=== PATIENT | female | born 1995 | race Caucasian/White ===

== ENCOUNTER 2020-01-02 16:14 | Emergency (ER) | payer OTHER ==
[2020-01-02 16:19] VITALS: RESP 18
[2020-01-02] MEDS ORDERED: SODIUM CHLORIDE 0.9% 2,000 ML IV STA (16:57)
[2020-01-02] MEDS ORDERED: ONDANSETRON 4 MG/2 ML VIAL IVP STA (17:07)
[2020-01-02 17:15] LABS: Basophils % (A) 0 %; Eosinophils # (A) 0.1 k/uL (0-0.7); Eosinophils % (A) 1 %; HCT 39.1 % (34.0-46.0); HGB 13.7 gm/dL (11.4-16.0); Lymphocytes # (A) 1.7 k/uL (1.0-4.8); Lymphocytes % (A) 18 %; MCH 30.3 pg (25.0-35.0); MCV 86.6 fL (80.0-100.0); Mean Platelet Volume 6.3; Monocytes # (A) 0.3 k/uL (0-1.0); Monocytes % (A) 3 %; Neutrophils # (A) 7.5 k/uL (1.3-7.7); Neutrophils % (A) 77 %; Platelet Count 283 k/uL (150-450); RBC 4.51 m/uL (3.80-5.40); RDW 12.4 % (11.5-15.5); WBC 9.8 k/uL (3.8-10.6)
[2020-01-02 17:21] LABS: Appearance,Urine Clear (Clear); Bacteria,Urine Rare /hpf; Bilirubin,Urine Negative (Negative); Blood,Urine Negative (Negative); Color,Urine Light Yellow; Glucose,Urine (UA) Negative (Negative); Ketones,Urine 3+ (Negative); Leukocyte Esterase,Urine Moderate (Negative); Mucus,Urine Rare /hpf; Nitrite,Urine Negative (Negative); Protein,Urine Negative (Negative); RBC,Urine 1 /hpf (0-5); Specific Gravity,Urine 1.008 (1.001-1.035); Squamous Epithelial Cell,Urine 5 /hpf (0-4); Urobilinogen,Urine <2.0 mg/dL (<2.0); WBC,Urine 1 /hpf (0-5)
[2020-01-02 17:25] LABS: ALT 12 U/L (4-34); AST 20 U/L (14-36); African American GFR (CKD) >90 (>60 ml/min/1.73 sqM); Albumin 4.7 g/dL (3.5-5.0); Alkaline Phosphatase 56 U/L (38-126); Anion Gap 10 mmol/L; Blood Urea Nitrogen 6 mg/dL (7-17); Calcium 9.7 mg/dL (8.4-10.2); Carbon Dioxide 22 mmol/L (22-30); Chloride 102 mmol/L (98-107); Glucose 80 mg/dL (74-99); Non-African American GFR(CKD) >90 (>60 ml/min/1.73 sqM); Sodium 134 mmol/L (137-145); Total Bilirubin 0.8 mg/dL (0.2-1.3)
--- NOTE | 2020-01-02 17:35 | US ---
EXAMINATION TYPE: US OB limited DATE OF EXAM: 01/02/2020 COMPARISON: NONE CLINICAL HISTORY: heart tones. heart tones. Cramping. Hx miscarriage. . EXAM PERFORMED: Transabdominal (TA) GESTATIONAL AGE / DATING Physician Established: (13 weeks/3 days) EDC: 07/06/2020 No growth performed on today?s study per ordering physician HEART RATE: 166 bpm RHYTHM: Normal IMPRESSION: Limited exam shows the fetus has a heart rate of 166.
--- NOTE | 2020-01-02 17:36 | ED ---
Nausea/Vomiting/Diarrhea HPI - General Chief complaint: Nausea/Vomiting/Diarrhea Stated complaint: 14 wks preg - cramping Time Seen by Provider: 01/02/20 16:56 Source: patient, RN notes reviewed Mode of arrival: ambulatory Limitations: no limitations - History of Present Illness Initial comments: this a 24-year-old female presents emergency Department chief complaint of nausea vomiting and early . Patient states she is G1 to currently [address] Colin. Patient states that she did have some morning sickness throughout her early patient states is getting better but statesin the last 24 hours been on able to keep anything down. Patient states that she has some mild lower abdominal cramping no dysuria no h ematuria no vaginal bleeding or vaginal discharge are the usual. Patient has no diarrhea no constipation. - Related Data Allergies Allergy/AdvReac Type Severity Reaction Status Date / Time No Known Allergies Allergy Verified 01/02/20 16:19 Review of Systems ROS Statement: Those systems with pertinent positive or pertinent negative responses have been documented in the HPI. ROS Other: All systems not noted in ROS Statement are negative. Past Medical History Past Medical History: No Reported History History of Any Multi-Drug Resistant Organisms: None Reported Past Surgical History: No Surgical Hx Reported Past Psychological History: Anxiety, Depression Smoking Status: Vaper Past Alcohol Use History: None Reported Past Drug Use History: Unable to Obtain General Exam Limitations: no limitations General appearance: alert, in no apparent distress Head exam: Present: atraumatic, normocephalic, normal inspection Eye exam: Present: normal appearance, PERRL, EOMI. Absent: scleral icterus, conjunctival injection, periorbital swelling ENT exam: Present: normal exam, normal oropharynx, mucous membranes moist Neck exam: Present: normal inspection, full ROM. Absent: tenderness, meningismus, lymphadenopathy Respiratory exam: Present: normal lung sounds bilaterally. Absent: respiratory distress, wheezes, rales, rhonchi, stridor Cardiovascular Exam: Present: regular rate, normal rhythm, normal heart sounds. Absent: systolic murmur, diastolic murmur, rubs, gallop, clicks GI/Abdominal exam: Present: soft, tenderness (mild suprapubic), normal bowel sounds. Absent: distended, guarding, rebound, rigid Course Vital Signs 01/02/20 16:16 Temperature 98.1 F Pulse Rate 59 L Respiratory 18 Rate Blood Pressure 112/69 O2 Sat by Pulse 100 Oximetry Medical Decision Making - Medical Decision Making 23-year-old female presented for nausea vomiting abdominal cramping. Patient does have mild dehydration, ultrasound shows heart rate of 166 patient has no vaginal bleeding. Patient be discharged in stable condition close follow-up. - Lab Data Result diagrams: 01/02/20 17:03 01/02/20 17:03 Lab Results 01/02/20 01/02/20 01/02/20 Range/Units 17:03 17:03 17:03 WBC 9.8 (3.8-10.6) k/uL RBC 4.51 (3.80-5.40) m/uL Hgb 13.7 (11.4-16.0) gm/dL Hct 39.1 (34.0-46.0) % MCV 86.6 (80.0-100.0) fL MCH 30.3 (25.0-35.0) pg MCHC 35.0 (31.0-37.0) g/dL RDW 12.4 (11.5-15.5) % Plt Count 283 (150-450) k/uL MPV 6.3 Neutrophils % 77 % Lymphocytes % 18 % Monocytes % 3 % Eosinophils % 1 % Basophils % 0 % Neutrophils # 7.5 (1.3-7.7) k/uL Lymphocytes # 1.7 (1.0-4.8) k/uL Monocytes # 0.3 (0-1.0) k/uL Eosinophils # 0.1 (0-0.7) k/uL Basophils # 0.0 (0-0.2) k/uL Sodium 134 L (137-145) mmol/L Potassium 4.0 (3.5-5.1) mmol/L Chloride 102 (98-107) mmol/L Carbon Dioxide 22 (22-30) mmol/L Anion Gap 10 mmol/L BUN 6 L (7-17) mg/dL Creatinine 0.44 L (0.52-1.04) mg/dL Est GFR (CKD-EPI)AfAm >90 (>60 ml/min/1.73 sqM) Est GFR (CKD-EPI)NonAf >90 (>60 ml/min/1.73 sqM) Glucose 80 (74-99) mg/dL Calcium 9.7 (8.4-10.2) mg/dL Total Bilirubin 0.8 (0.2-1.3) mg/dL AST 20 (14-36) U/L ALT 12 (4-34) U/L Alkaline Phosphatase 56 (38-126) U/L Total Protein 8.0 (6.3-8.2) g/dL Albumin 4.7 (3.5-5.0) g/dL Urine Color Light Yellow Urine Appearance Clear (Clear) Urine pH 6.0 (5.0-8.0) Ur Specific [place] 1.008 (1.001-1.035) Urine Protein Negative (Negative) Urine Glucose (UA) Negative (Negative) Urine Ketones 3+ H (Negative) Urine Blood Negative (Negative) Urine Nitrite Negative (Negative) Urine Bilirubin Negative (Negative) Urine Urobilinogen <2.0 (<2.0) mg/dL Ur Leukocyte Esterase Moderate H (Negative) Urine RBC 1 (0-5) /hpf Urine WBC 1 (0-5) /hpf Ur Squamous Epith Cells 5 H (0-4) /hpf Urine Bacteria Rare H (None) /hpf Urine Mucus Rare H (None) /hpf Disposition Clinical Impression: Dehydration, Nausea/vomiting in Disposition: HOME SELF-CARE Condition: Stable Instructions (If sedation given, give patient instructions): Acute Nausea and Vomiting (ED) Additional Instructions: Please return to the Emergency Department if symptoms worsen or any other concerns. Is patient prescribed a controlled substance at d/c from ED?: No Referrals: None,Stated [Primary Care Provider] - 1-2 days Time of Disposition: 18:12
[2020-01-02 18:54] VITALS: BP 110/63; PULSE 60; TEMP 97.8
== END 2020-01-02 19:05 | disposition home or self-care (01) ==
LOC: EC 16:14
DX: O21.9 Vomiting of pregnancy, unspecified (principal); O99.282 Endocrine, nutritional and metabolic diseases complicating pregnancy, second trimester; E86.0 Dehydration; O99.331 Smoking (tobacco) complicating pregnancy, first trimester; F17.290 Nicotine dependence, other tobacco product, uncomplicated; Z3A.14 14 weeks gestation of pregnancy
CPT/HCPCS: 99284; 96374; 96361 ×2; 36415; 80053; 85025; 81001; 76815; J2405

== ENCOUNTER 2020-01-16 14:28 | Emergency (ER) | payer OTHER ==
[2020-01-16 14:32] VITALS: TEMP 98.6
[2020-01-16] MEDS ORDERED: ACETAMINOPHEN TAB 500 MG TAB PO STA (14:46)
[2020-01-16] MEDS ORDERED: SODIUM CHLORIDE 0.9% 1,000 ML IV ONE (14:46)
--- NOTE | 2020-01-16 14:48 | ED ---
General Adult HPI - General Chief complaint: Vaginal Bleeding Stated complaint: 15 wks preg vag bleeding Time Seen by Provider: 01/16/20 14:35 Source: patient, RN notes reviewed Mode of arrival: ambulatory Limitations: no limitations - History of Present Illness Initial comments: 24 year-old female currently 15 weeks presents to the emergency room for vaginal bleeding. Patient's LMP was September 29. Patient reports that she was cooking today when she noticed she was bleeding. States that she is having some slight cramping pain as well. Denies significant pain. She is concerned because she has had a miscarriage in the past. Patient denies any feelings of lightheadedness. Patient has no other complaints at this time including shortness of breath, chest pain, abdominal pain, nausea or vomiting, headache, or visual changes. - Related Data Home Medications Medication Instructions Recorded Confirmed Citalopram Hydrobromide [CeleXA] 10 mg PO HS 01/02/20 01/02/20 Klm-Azvh-Wtygs Acid 1 cap PO DAILY 01/02/20 01/02/20 [-U Capsule (formulary)] Allergies Allergy/AdvReac Type Severity Reaction Status Date / Time No Known Allergies Allergy Verified 01/16/20 14:32 Review of Systems ROS Statement: Those systems with pertinent positive or pertinent negative responses have been documented in the HPI. ROS Other: All systems not noted in ROS Statement are negative. Past Medical History Past Medical History: No Reported History History of Any Multi-Drug Resistant Organisms: None Reported Past Surgical History: No Surgical Hx Reported Past Psychological History: Anxiety, Depression Smoking Status: Vaper Past Alcohol Use History: None Reported Past Drug Use History: Unable to Obtain General Exam Limitations: no limitations General appearance: alert, in no apparent distress Head exam: Present: atraumatic, normocephalic, normal inspection Eye exam: Present: normal appearance, PERRL, EOMI. Absent: scleral icterus, conjunctival injection, periorbital swelling ENT exam: Present: normal exam, mucous membranes moist Neck exam: Present: normal inspection, full ROM. Absent: tenderness, meningismus, lymphadenopathy Respiratory exam: Present: normal lung sounds bilaterally. Absent: respiratory distress, wheezes, rales, rhonchi, stridor Cardiovascular Exam: Present: regular rate, normal rhythm, normal heart sounds. Absent: systolic murmur, diastolic murmur, rubs, gallop, clicks GI/Abdominal exam: Present: soft, normal bowel sounds. Absent: distended, tenderness, guarding, rebound, rigid External exam: Present: normal external exam. Absent: erythema, swelling, lesions, lacerations, ecchymosis Speculum exam: Present: vaginal bleeding (mild bleeding from cervix present.). Absent: normal speculum exam, erythema, vaginal discharge, cervical discharge, foreign body, tissue, laceration Neurological exam: Present: alert Course Vital Signs 01/16/20 14:29 Temperature 98.6 F Pulse Rate 88 Respiratory 20 Rate Blood Pressure 109/72 O2 Sat by Pulse 97 Oximetry Medical Decision Making - Medical Decision Making vitals are stable. No significant abdominal tenderness. Pelvic exam performed which showed minimal to mild bleeding from the cervix. CBC CMP unremarkable. Hemoglobin is 12.1. Urinalysis does show 18 red blood cells which is likely secondary to vaginal bleeding. Patient is O+ blood type. Ultrasound was performed. This shows a single live intrauterine gestation with a heart rate of 149 in breech position. Amniotic fluid index is within normal limits. A placenta previa is present with small curvilinear adjacent fluid noted. Transvaginal investigations of cervical measurement to be borderline. Recommend short-term ultrasound follow-up. Patient will call her [employer] Dr. jay tomorrow. I discussed that if symptoms worsen such as bleeding increases she should return to the emergency room for reevaluation. She starts feeling lightheaded she will also return. I discussed pelvic rest as well. I discussed this case with attending Dr. Poon who agrees with this assessment and treatment plan. - Lab Data Result diagrams: 01/16/20 15:02 01/16/20 15:02 Lab Results 01/16/20 01/16/20 01/16/20 Range/Units 14:50 14:50 15:02 WBC 9.6 (3.8-10.6) k/uL RBC 3.94 (3.80-5.40) m/uL Hgb 12.1 (11.4-16.0) gm/dL Hct 34.2 (34.0-46.0) % MCV 86.9 (80.0-100.0) fL MCH 30.7 (25.0-35.0) pg MCHC 35.4 (31.0-37.0) g/dL RDW 12.5 (11.5-15.5) % Plt Count 260 (150-450) k/uL MPV 6.4 Neutrophils % 81 % Lymphocytes % 14 % Monocytes % 3 % Eosinophils % 1 % Basophils % 0 % Neutrophils # 7.8 H (1.3-7.7) k/uL Lymphocytes # 1.3 (1.0-4.8) k/uL Monocytes # 0.3 (0-1.0) k/uL Eosinophils # 0.1 (0-0.7) k/uL Basophils # 0.0 (0-0.2) k/uL Sodium (137-145) mmol/L Potassium (3.5-5.1) mmol/L Chloride (98-107) mmol/L Carbon Dioxide (22-30) mmol/L Anion Gap mmol/L BUN (7-17) mg/dL Creatinine (0.52-1.04) mg/dL Est GFR (CKD-EPI)AfAm (>60 ml/min/1.73 sqM) Est GFR (CKD-EPI)NonAf (>60 ml/min/1.73 sqM) Glucose (74-99) mg/dL Calcium (8.4-10.2) mg/dL Total Bilirubin (0.2-1.3) mg/dL AST (14-36) U/L ALT (4-34) U/L Alkaline Phosphatase (38-126) U/L Total Protein (6.3-8.2) g/dL Albumin (3.5-5.0) g/dL Urine Color Red Urine Appearance Cloudy H (Clear) Urine pH 6.0 (5.0-8.0) Ur Specific [place] 1.011 (1.001-1.035) Urine Protein 2+ H (Negative) Urine Glucose (UA) Negative (Negative) Urine Ketones Negative (Negative) Urine Blood Large H (Negative) Urine Nitrite Negative (Negative) Urine Bilirubin Negative (Negative) Urine Urobilinogen <2.0 (<2.0) mg/dL Ur Leukocyte Esterase Trace H (Negative) Urine RBC 18 H (0-5) /hpf Urine WBC 3 (0-5) /hpf Ur Squamous Epith Cells 11 H (0-4) /hpf Urine Bacteria Rare H (None) /hpf Hyaline Casts 1 (0-2) /lpf Urine Mucus Rare H (None) /hpf Urine HCG, Qual Detected (Not Detectd) Blood Type Blood Type Recheck Bld Type Recheck Status 01/16/20 01/16/20 Range/Units 15:02 15:02 WBC (3.8-10.6) k/uL RBC (3.80-5.40) m/uL Hgb (11.4-16.0) gm/dL Hct (34.0-46.0) % MCV (80.0-100.0) fL MCH (25.0-35.0) pg MCHC (31.0-37.0) g/dL RDW (11.5-15.5) % Plt Count (150-450) k/uL MPV Neutrophils % % Lymphocytes % % Monocytes % % Eosinophils % % Basophils % % Neutrophils # (1.3-7.7) k/uL Lymphocytes # (1.0-4.8) k/uL Monocytes # (0-1.0) k/uL Eosinophils # (0-0.7) k/uL Basophils # (0-0.2) k/uL Sodium 132 L (137-145) mmol/L Potassium 4.2 (3.5-5.1) mmol/L Chloride 104 (98-107) mmol/L Carbon Dioxide 23 (22-30) mmol/L Anion Gap 5 mmol/L BUN 6 L (7-17) mg/dL Creatinine 0.39 L (0.52-1.04) mg/dL Est GFR (CKD-EPI)AfAm >90 (>60 ml/min/1.73 sqM) Est GFR (CKD-EPI)NonAf >90 (>60 ml/min/1.73 sqM) Glucose 90 (74-99) mg/dL Calcium 9.4 (8.4-10.2) mg/dL Total Bilirubin 0.3 (0.2-1.3) mg/dL AST 16 (14-36) U/L ALT 8 (4-34) U/L Alkaline Phosphatase 45 (38-126) U/L Total Protein 7.2 (6.3-8.2) g/dL Albumin 4.1 (3.5-5.0) g/dL Urine Color Urine Appearance (Clear) Urine pH (5.0-8.0) Ur Specific [place] (1.001-1.035) Urine Protein (Negative) Urine Glucose (UA) (Negative) Urine Ketones (Negative) Urine Blood (Negative) Urine Nitrite (Negative) Urine Bilirubin (Negative) Urine Urobilinogen (<2.0) mg/dL Ur Leukocyte Esterase (Negative) Urine RBC (0-5) /hpf Urine WBC (0-5) /hpf Ur Squamous Epith Cells (0-4) /hpf Urine Bacteria (None) /hpf Hyaline Casts (0-2) /lpf Urine Mucus (None) /hpf Urine HCG, Qual (Not Detectd) Blood Type O Positive Blood Type Recheck No Previous Record Bld Type Recheck Status [facility] ONLY Disposition Clinical Impression: Threatened miscarriage, Vaginal bleeding Disposition: HOME SELF-CARE Condition: Good Instructions (If sedation given, give patient instructions): Threatened Miscarriage (ED) Additional Instructions: Please follow up with Dr. Colin tomorrow. Discuss ultrasound was advised on a short-term basis. Practice pelvic rest and do not insert anything into the vagina. If you're having worsening symptoms such as worsening pain or bleeding increases return to the emergency room. Is patient prescribed a controlled substance at d/c from ED?: No Referrals: Yesenia Colin MD [STAFF PHYSICIAN] - 1-2 days Time of Disposition: 17:20
[2020-01-16 15:13] LABS: Basophils % (A) 0 %; Eosinophils # (A) 0.1 k/uL (0-0.7); Eosinophils % (A) 1 %; HCT 34.2 % (34.0-46.0); HGB 12.1 gm/dL (11.4-16.0); Lymphocytes # (A) 1.3 k/uL (1.0-4.8); Lymphocytes % (A) 14 %; MCH 30.7 pg (25.0-35.0); MCHC 35.4 g/dL (31.0-37.0); MCV 86.9 fL (80.0-100.0); Mean Platelet Volume 6.4; Monocytes # (A) 0.3 k/uL (0-1.0); Monocytes % (A) 3 %; Neutrophils # (A) 7.8 k/uL (1.3-7.7); Neutrophils % (A) 81 %; Platelet Count 260 k/uL (150-450); RBC 3.94 m/uL (3.80-5.40); RDW 12.5 % (11.5-15.5); WBC 9.6 k/uL (3.8-10.6)
[2020-01-16 15:20] LABS: ALT 8 U/L (4-34); AST 16 U/L (14-36); African American GFR (CKD) >90 (>60 ml/min/1.73 sqM); Albumin 4.1 g/dL (3.5-5.0); Alkaline Phosphatase 45 U/L (38-126); Anion Gap 5 mmol/L; Blood Urea Nitrogen 6 mg/dL (7-17); Calcium 9.4 mg/dL (8.4-10.2); Carbon Dioxide 23 mmol/L (22-30); Chloride 104 mmol/L (98-107); Glucose 90 mg/dL (74-99); Non-African American GFR(CKD) >90 (>60 ml/min/1.73 sqM); Potassium 4.2 mmol/L (3.5-5.1); Sodium 132 mmol/L (137-145); Total Bilirubin 0.3 mg/dL (0.2-1.3); Total Protein 7.2 g/dL (6.3-8.2)
[2020-01-16 16:30] LABS: Appearance,Urine Cloudy (Clear); Bacteria,Urine Rare /hpf; Bilirubin,Urine Negative (Negative); Blood,Urine Large (Negative); Color,Urine Red; Glucose,Urine (UA) Negative (Negative); Hyaline Casts,Urine 1 /lpf (0-2); Ketones,Urine Negative (Negative); Leukocyte Esterase,Urine Trace (Negative); Mucus,Urine Rare /hpf; Nitrite,Urine Negative (Negative); Protein,Urine 2+ (Negative); RBC,Urine 18 /hpf (0-5); Specific Gravity,Urine 1.011 (1.001-1.035); Squamous Epithelial Cell,Urine 11 /hpf (0-4); Urobilinogen,Urine <2.0 mg/dL (<2.0); WBC,Urine 3 /hpf (0-5)
--- NOTE | 2020-01-16 16:41 | US ---
EXAMINATION TYPE: US OB >= 14 wk fetus, US OB TV Cervical Measurement DATE OF EXAM: 01/16/2020 COMPARISON: None CLINICAL HISTORY: bleeding, painPain and bleeding x 1 day. Hx 1 miscarriage. . LMP 09/30/2019. TECHNIQUE: Transabdominal (TA) GESTATIONAL AGE / DATING Physician Established: 09/30/2019 (15 weeks/3 days) EDC: 07/06/2020 Dates by LMP: (15 weeks/3 days) EDC: 07/06/2020 Dates by First Scan: This is first scan Dates by Current Scan: (16 weeks/0 days) EDC: 07/02/2020 SURVEY IUP: Single PLACENTA: Anterior. *There appears to be hypoechoic-anechoic area adjacent to/posterior to the placenta measuring approxi mately: 4.7 x 6.0 x 0.5 cm. PREVIA: There appears to be previa. ROSETTA: 14.57 cm Normal CERVICAL LENGTH (transabdominal: norm > 3.0cm): 2.64 cm CERVICAL LENGTH (transvaginal: norm> 2.5cm): 2.28 cm measurement does not include anechoic area. 2.7 cm initial measurement. (Supplemental transvaginal imaging performed to verify cervical length.) -After TA exam, case discussed with Lisa and Dr. Dorsey. Recommend to do TV exam for cervical le ngth. BIOMETRY PRESENTATION: Breech LIE: Longitudinal BPD: 3.19 cm 16 weeks / 0 days HC: 12.17 cm 16 weeks / 1 days AC: 9.99 cm 16 weeks / 0 days FL: 1.83 cm 15 weeks / 3 days ESTIMATED WEIGHT IN GRAMS: 134.44 grams ESTIMATED WEIGHT IN LBS/OZ: 0 lbs. 5 oz. WEIGHT PERCENTAGE BASED ON ESTABLISHED DATES: 63.7% HC/AC: 1.22 Normal FL/AC: 18.35 HEART RATE: 149 bpm RHYTHM: Normal Single live intrauterine gestation is documented. Current breech presentation. Calculated amniotic fl uid index is within normal limits. biometry measurements congruent and felt within normal limit s. Placenta previa is present. Small curvilinear adjacent fluid noted. Transvaginal investigation logan ws cervical measurement to be borderline. Small amount of free fluid in pelvic cul-de-sac. IMPRESSION: As above. Cervical measurements borderline. Short-term beta-hCG and ultrasound follow-up advised.
[2020-01-16 17:40] VITALS: BP 105/65; PULSE 70; RESP 18
== END 2020-01-16 17:40 | disposition home or self-care (01) ==
LOC: EC 14:28
DX: O20.0 Threatened abortion (principal); O44.12 Complete placenta previa with hemorrhage, second trimester; O99.342 Other mental disorders complicating pregnancy, second trimester; F41.9 Anxiety disorder, unspecified; F32.9 Major depressive disorder, single episode, unspecified; O99.332 Smoking (tobacco) complicating pregnancy, second trimester; F17.290 Nicotine dependence, other tobacco product, uncomplicated; Z3A.15 15 weeks gestation of pregnancy
CPT/HCPCS: 36415; 76805; 76817; 80053; 81001; 81025; 85025; 86900; 86901; 96360; 99284

== ENCOUNTER 2020-01-18 10:38 | Emergency (ER) | payer OTHER ==
--- NOTE | 2020-01-18 11:19 | ED ---
Female Urogenital HPI - General Chief complaint: Vaginal Bleeding Stated complaint: 15wks preg/Bleeding revisit Source: patient Mode of arrival: ambulatory Limitations: no limitations - History of Present Illness Initial comments: Patient is a 24-year-old female who presents to the emergency department for report of vaginal bleeding. Patient is currently 15 weeks . States that she has had some issues with vaginal bleeding in . She was seen in the emergency department on the and for similar complaints. States that she has been on pelvic rest. Continues to have some bleeding which originally got better and then worse today. Patient states that she is saturating a pad every 2 hours. She did call Dr[address] Gonsalez to notify him as he is metal sprayer production for Dr. Colin. Patient denies any abnormal vaginal discharge. No urinary or bowel complaints. Does admit to mild suprapubic cramping. No other alleviating, precipitating or modifying factors - Related Data Home Medications Medication Instructions Recorded Confirmed Citalopram Hydrobromide [CeleXA] 10 mg PO HS 01/02/20 01/02/20 Mrq-Styv-Mrdsg Acid 1 cap PO DAILY 01/02/20 01/02/20 [-U Capsule (formulary)] Allergies Allergy/AdvReac Type Severity Reaction Status Date / Time No Known Allergies Allergy Verified 01/18/20 10:41 Review of Systems ROS Statement: Those systems with pertinent positive or pertinent negative responses have been documented in the HPI. ROS Other: All systems not noted in ROS Statement are negative. Past Medical History Past Medical History: No Reported History History of Any Multi-Drug Resistant Organisms: None Reported Past Surgical History: No Surgical Hx Reported Past Psychological History: Anxiety, Depression Smoking Status: Vaper Past Alcohol Use History: None Reported Past Drug Use History: Marijuana General Exam Limitations: no limitations Course Vital Signs 01/18/20 01/18/20 10:41 12:28 Temperature 98.2 F 98.0 F Pulse Rate 84 65 Respiratory 16 18 Rate Blood Pressure 108/74 97/57 O2 Sat by Pulse 99 98 Oximetry Medical Decision Making - Medical Decision Making Upon arrival patient is placed into room 6. A thorough history and physical exam was performed. Urine analysis conducted. Did review the patient's chart and perform a repeat ultrasound. Ultrasound continues to demonstrate possibly visualized between placenta and cervical canal. Single live intrauterine gestation. Results are discussed the Dr. Gonsalez. Patient will be discharged home at this time and is to call to make an appointment with Dr. Colin. She is to continue to be on pelvic rest. Return to the emergency room for any new or worsening symptoms. Patient was discharged home in stable condition - Lab Data Lab Results 01/18/20 Range/Units 11:08 Urine Color Colorless Urine Appearance Clear (Clear) Urine pH 7.5 (5.0-8.0) Ur Specific [place] 1.005 (1.001-1.035) Urine Protein Negative (Negative) Urine Glucose (UA) Negative (Negative) Urine Ketones Negative (Negative) Urine Blood Trace H (Negative) Urine Nitrite Negative (Negative) Urine Bilirubin Negative (Negative) Urine Urobilinogen <2.0 (<2.0) mg/dL Ur Leukocyte Esterase Negative (Negative) Urine WBC 1 (0-5) /hpf Ur Squamous Epith Cells 2 (0-4) /hpf Urine Bacteria Rare H (None) /hpf Urine Mucus Rare H (None) /hpf Disposition Clinical Impression: Threatened miscarriage, Subchorionic hematoma, Suspected shortening of cervix not found Disposition: HOME SELF-CARE Condition: Stable Instructions (If sedation given, give patient instructions): Threatened Miscarriage (ED) Additional Instructions: You need to be on pelvic rest. No tampons or vaginal intercourse. Call Dr. Colin's office on Monday. Return to the emergency department for any new or symptoms Is patient prescribed a controlled substance at d/c from ED?: No Referrals: None,Stated [Primary Care Provider] - 1-2 days Yesenia Colin MD [STAFF PHYSICIAN] - 1-2 days Time of Disposition: 13:05
[2020-01-18 12:08] LABS: Appearance,Urine Clear (Clear); Bacteria,Urine Rare /hpf; Bilirubin,Urine Negative (Negative); Blood,Urine Trace (Negative); Color,Urine Colorless; Glucose,Urine (UA) Negative (Negative); Ketones,Urine Negative (Negative); Leukocyte Esterase,Urine Negative (Negative); Mucus,Urine Rare /hpf; Nitrite,Urine Negative (Negative); PH, Urine 7.5 (5.0-8.0); Protein,Urine Negative (Negative); Specific Gravity,Urine 1.005 (1.001-1.035); Squamous Epithelial Cell,Urine 2 /hpf (0-4); Urobilinogen,Urine <2.0 mg/dL (<2.0); WBC,Urine 1 /hpf (0-5)
--- NOTE | 2020-01-18 12:30 | US ---
EXAMINATION TYPE: US OB >= 14 wk fetus DATE OF EXAM: 01/18/2020 COMPARISON: Prior ultrasound 2 days ago CLINICAL HISTORY: worsening bleeding, 15 weeks TECHNIQUE: Transabdominal (TA) GESTATIONAL AGE / DATING Physician Established: (15 weeks/5 days) EDC: 07/06/2020 Dates by Current Scan: (16 weeks/2 days) EDC: 07/02/2020 SURVEY IUP: Single PLACENTA: Anterior PREVIA: Complete ROSETTA: 10.9 cm Normal CERVICAL LENGTH (transabdominal: norm > 3.0cm): 2.4 cm BIOMETRY PRESENTATION: Vertex BPD: 3.4 cm 16 weeks / 3 days HC: 12.6 cm 16 weeks / 3 days AC: 11.1 cm 17 weeks / 0 days FL: 1.8 cm 15 weeks / 3 days ESTIMATED WEIGHT IN GRAMS: 148.8 grams ESTIMATED WEIGHT IN LBS/OZ: 0 lbs. 5 oz. WEIGHT PERCENTAGE BASED ON ESTABLISHED DATES: 74.9% HC/AC: 1.1 Normal FL/AC: 16.3 HEART RATE: 152 bpm RHYTHM: Normal Transvaginal ultrasound deferred due to already known shortened cervix, transvaginal ultrasound wa s performed 2 days ago and worsening bleeding. Possible bleed visualized between placenta and cervical canal - 1.9 x 2.9 x 1.2 cm. Single live intrauterine gestation redemonstrated. Some cervical thinning redemonstrated. biome try measurements congruent and remain within normal limits. Small fluid collection or hemorrhage near region of placenta noted. IMPRESSION: As above.
[2020-01-18 12:31] VITALS: BP 97/57; PULSE 65; RESP 18; TEMP 98
== END 2020-01-18 13:16 | disposition home or self-care (01) ==
LOC: EC 10:38
DX: O20.0 Threatened abortion (principal); O41.8X20 Other specified disorders of amniotic fluid and membranes, second trimester, not applicable or unspecified; O99.342 Other mental disorders complicating pregnancy, second trimester; F41.9 Anxiety disorder, unspecified; F32.9 Major depressive disorder, single episode, unspecified; O99.332 Smoking (tobacco) complicating pregnancy, second trimester; F17.290 Nicotine dependence, other tobacco product, uncomplicated; Z3A.15 15 weeks gestation of pregnancy; Z79.899 Other long term (current) drug therapy
CPT/HCPCS: 76805; 81001; 99284

== ENCOUNTER 2020-05-23 21:10 | Outpatient (CLI) | payer OTHER ==
[2020-05-23 21:51] VITALS: PULSE 78
[2020-05-23] MEDS ORDERED: TERBUTALINE 1 MG/ML VIAL SQ PRN (21:56)
[2020-05-23] MEDS ORDERED: LACTATED RINGERS 1,000 ML IV SCH (22:00)
[2020-05-23 22:20] LABS: Appearance,Urine Clear (Clear); Bilirubin,Urine Negative (Negative); Blood,Urine Negative (Negative); Color,Urine Light Yellow; Glucose,Urine (UA) Negative (Negative); Ketones,Urine Negative (Negative); Leukocyte Esterase,Urine Moderate (Negative); Mucus,Urine Rare /hpf; Nitrite,Urine Negative (Negative); Protein,Urine Negative (Negative); RBC,Urine <1 /hpf (0-5); Squamous Epithelial Cell,Urine 3 /hpf (0-4); Urobilinogen,Urine <2.0 mg/dL (<2.0); WBC,Urine <1 /hpf (0-5)
[2020-05-23 22:55] VITALS: BP 90/53; RESP 20; TEMP 97.8
== END 2020-05-23 22:59 | disposition home or self-care (01) ==
LOC: FBPOP 21:10
PROVIDERS: ATTEND Obstetrics & Gynecology
DX: Z34.93 Encounter for supervision of normal pregnancy, unspecified, third trimester (principal); Z3A.33 33 weeks gestation of pregnancy
CPT/HCPCS: 59025; 99214; 96360; 96367; 96372 ×2; 84112; 81001; J3105

== ENCOUNTER 2020-05-28 14:13 | Outpatient (CLI) | payer OTHER ==
[2020-05-28] MEDS ORDERED: TERBUTALINE 1 MG/ML VIAL SQ STA ×2 (14:52→15:31)
[2020-05-28] MEDS ORDERED: LACTATED RINGERS 1,000 ML IV SCH (15:00)
[2020-05-28] MEDS ORDERED: BETAMET ACET-BETAMETH SOD PHOS 6 MG/ML MDV IM SCH (16:00)
[2020-05-28 18:15] VITALS: BP 123/69; PULSE 76; RESP 16; TEMP 97.1
--- NOTE | 2020-07-13 07:40 | P.MSEPDOC ---
Presenting Problems - Arrival Data Date of Arrival on Unit: 05/28/20 Time of Arrival on Unit: 14:13 Mode of Transport: Wheelchair - Complaint OB-Reason for Admission/Chief Complaint: Possible Onset of Labor Medical History - Information : 1 Para: 0 Term: 0 : 0 Abortions: Spontaneous or Elective: 0 Number of Living Children: 0 - Gestational Age Gestational Age by JUANIS (wks/days): 34 Weeks and 3 Days Review of Systems - Review of Systems Constitutional: No problems Breast: No problems ENT: No problems Cardiovascular: No problems Respiratory: No problems Gastrointestinal: No problems Genitourinary: No problems Musculoskeletal: No problems Neurological: No problems Skin: No problems Vital Signs - Temperature Temperature: 97.1 F Temperature Source: Temporal Artery Scan - Pulse Right Pulse Rate: 76 Pulse Assessment Method: Automatic Cuff - Respirations Respiratory Rate: 16 Oxygen Delivery Method: Room Air O2 Sat by Pulse Oximetry: 99 - Blood Pressure Right Arm Blood Pressure: 123/69 Blood Pressure Mean: 87 Blood Pressure Source: Automatic Cuff Medical Screen Scoring (Pre) - Cervical Exam Dilation: 1-3 cm = 1 Effacement: More than 50% = 2 Membranes: Intact - Uterine Contractions Frequency: > 5 minutes apart = 1 Duration: N/A Intensity: N/A - Maternal Vital Signs Maternal Temperature: N/A Maternal Blood Pressure: N/A Signs of Preeclampsia: N/A Maternal Respirations: N/A - Maternal Trauma Maternal Trauma: N/A - Assessment - Baby A Baseline FHR: 135 Heart Rate - NICHD Category: Category I (Normal) = 0 NST: Reactive Position: N/A Station: N/A - Total Score - Baby A Total Score - Baby A: 4 - Total Score - Baby B Total Score - Baby B: 4 - Total Score - Baby C Total Score - Baby C: 4 - Level of Risk - Baby A Level of Risk - Baby A: Low (0-5) - Level of Risk - Baby B Level of Risk - Baby B: Low (0-5) - Level of Risk - Baby C Level of Risk - Baby C: Low (0-5) Physician Notification (Pre) - Physician Notified Physician Notified Date: 05/28/20 Physician Notified Time: 15:50 New Order Received: Yes (discharge home) Disposition - Disposition OB Disposition: Physician follow up in office, Discharge to home Discharge Date: 05/28/20 Discharge Time: 16:30 I agree with the RN Medical Screening Exam: Yes Case reviewed; plan agreed upon as documented in EMR&OBIX.: Yes Comments: Patient was neither seen nor examined by me Diagnosis: FALSE LABOR BEFORE 37 COMPLETED WEEKS OF GEST, THIRD TRI
== END 2020-05-28 16:30 | disposition home or self-care (01) ==
LOC: FBPOP 14:13
PROVIDERS: ATTEND Obstetrics & Gynecology
DX: O47.03 False labor before 37 completed weeks of gestation, third trimester (principal); Z3A.34 34 weeks gestation of pregnancy
CPT/HCPCS: 59025; 99213; 96360; 96372; 82731; J3105; J0702

== ENCOUNTER 2020-05-29 16:15 | Outpatient (CLI) | payer OTHER ==
[2020-05-29] MEDS ORDERED: BETAMET ACET-BETAMETH SOD PHOS 6 MG/ML MDV IM SCH (16:30)
[2020-05-29 16:50] VITALS: BP 115/66; PULSE 90; RESP 16; TEMP 97.2
--- NOTE | 2020-06-04 17:45 | P.MSEPDOC ---
Presenting Problems - Arrival Data Date of Arrival on Unit: 05/29/20 Time of Arrival on Unit: 16:15 Mode of Transport: Wheelchair - Complaint OB-Reason for Admission/Chief Complaint: Celestone Injection Medical History - Information : 2 Para: 0 Term: 0 : 0 Abortions: Spontaneous or Elective: 0 Number of Living Children: 0 - Gestational Age Gestational Age by JUANIS (wks/days): 34 Weeks and 4 Days Review of Systems - Review of Systems Constitutional: No problems Breast: No problems ENT: No problems Cardiovascular: No problems Respiratory: No problems Gastrointestinal: No problems Genitourinary: No problems Musculoskeletal: No problems Neurological: No problems Skin: No problems Vital Signs - Temperature Temperature: 97.2 F Temperature Source: Temporal Artery Scan - Pulse Right Pulse Rate: 90 Pulse Assessment Method: Automatic Cuff - Respirations Respiratory Rate: 16 Oxygen Delivery Method: Room Air O2 Sat by Pulse Oximetry: 99 - Blood Pressure Right Arm Blood Pressure: 115/66 Blood Pressure Mean: 82 Blood Pressure Source: Automatic Cuff Medical Screen Scoring (Pre) - Cervical Exam Dilation: Exam Deferred Effacement: Exam Deferred Membranes: Intact - Uterine Contractions Frequency: N/A Duration: N/A Intensity: N/A - Maternal Vital Signs Maternal Temperature: N/A Signs of Preeclampsia: N/A Maternal Respirations: N/A - Maternal Trauma Maternal Trauma: N/A - Assessment - Baby A Baseline FHR: 130 Heart Rate - NICHD Category: Category I (Normal) = 0 NST: Reactive Position: N/A Station: N/A - Total Score - Baby A Total Score - Baby A: 0 - Total Score - Baby B Total Score - Baby B: 0 - Total Score - Baby C Total Score - Baby C: 0 - Level of Risk - Baby A Level of Risk - Baby A: Low (0-5) - Level of Risk - Baby B Level of Risk - Baby B: Low (0-5) - Level of Risk - Baby C Level of Risk - Baby C: Low (0-5) Physician Notification (Pre) - Physician Notified Physician Notified Date: 05/29/20 Physician Notified Time: 16:35 New Order Received: Yes (discharge home) Disposition - Disposition OB Disposition: Discharge to home Discharge Date: 05/29/20 Discharge Time: 16:40 I agree with the RN Medical Screening Exam: Yes Physician's MSE Comment: Patient was nursing examined by myself Case reviewed; plan agreed upon as documented in EMR&OBIX.: Yes Diagnosis: FALSE LABOR BEFORE 37 COMPLETED WEEKS OF GEST, SECOND TRI
== END 2020-05-29 16:40 | disposition home or self-care (01) ==
LOC: FBPOP 16:15
PROVIDERS: ATTEND Obstetrics & Gynecology Obstetrics
DX: O47.03 False labor before 37 completed weeks of gestation, third trimester (principal); Z3A.34 34 weeks gestation of pregnancy
CPT/HCPCS: 59025; 99213; 96372; J0702

== ENCOUNTER 2020-06-20 10:16 | Inpatient (IN) | payer OTHER ==
[2020-06-20] MEDS ORDERED: LIDOCAINE 0.5% (PF) 5 MG/ML (50 ML SDV) SQ PRN (10:24)
[2020-06-20] MEDS ORDERED: CARBOPROST TROMETHAMINE 250 MCG/ML 1 ML AMP IM PRN (10:24)
[2020-06-20] MEDS ORDERED: TERBUTALINE 1 MG/ML VIAL SQ PRN (10:24)
[2020-06-20] MEDS ORDERED: METHYLERGONOVINE 0.2 MG/ML 1 ML AMP IM PRN (10:24)
[2020-06-20] MEDS ORDERED: OXYTOCIN 10 UNIT/ML 1 ML VIAL IM PRN (10:24)
[2020-06-20] MEDS ORDERED: OXYTOCIN 30 UNITS/500 ML NS 30 UNIT in SALINE 1 500ML.BAG IV SCH ×2 (10:30→11:15)
[2020-06-20] MEDS ORDERED: LACTATED RINGERS 1,000 ML IV SCH (10:30)
[2020-06-20] MEDS ORDERED: SIMETHICONE 80 MG CHEWABLE PO PRN (11:10)
[2020-06-20] MEDS ORDERED: diphenhydrAMINE 50 MG/ML 1 ML VIAL IVP PRN ×2 (11:10)
[2020-06-20] MEDS ORDERED: LANOLIN CREAM 5 GM TUBE TOPICAL PRN (11:10)
[2020-06-20] MEDS ORDERED: diphenhydrAMINE 50 MG CAP PO PRN (11:10)
[2020-06-20] MEDS ORDERED: BENZOCAINE/MENTHOL SPRAY 1 GM/SPRAY AEROSOL TOPICAL PRN (11:10)
[2020-06-20] MEDS ORDERED: HYDROcodone/APAP 7.5-325MG 1 EACH TAB PO PRN (11:10)
[2020-06-20] MEDS ORDERED: diphenhydrAMINE 25 MG CAP PO PRN (11:10)
[2020-06-20] MEDS ORDERED: ZOLPIDEM 5 MG TAB PO PRN (11:10)
[2020-06-20] MEDS ORDERED: ACETAMINOPHEN TAB 325 MG TAB PO PRN (11:10)
[2020-06-20] MEDS ORDERED: HYDROCORTISONE 2.5% RECTAL CREAM 30 GM TUBE RECTAL PRN (11:10)
--- NOTE | 2020-06-20 11:19 | P.HPOB ---
History of Present Illness H&P Date: 06/20/20 Chief Complaint: 37+ weeks, active labor The patient is a 24-year-old 2 para 0010 admitted at 37-5/7 weeks by good dating parameters. She is admitted in active labor at 9 cm of dilation and through triage having presented by ambulance. Her has been uncomp licated and group B strep status is negative. On labor and delivery, she progressed very quickly to complete and began pushing. All signs are reassuring with a category 1 heart rate tracing. Obstetrical history: 2 para 0010 with one early miscarriage. Current statistics are listed in history present illness. EDC of 07/06/2020 was established by last menstrual period and confirmed by second trimester ultrasound. Laboratory workup demonstrates a blood type of O+ with a negative antibody screen. Rubella status is immune. Remainder of the laboratory workup was within normal limits. She did have negative screening for trisomy. Initial 1 hour Glucola was elevated but followed by a normal three-hour glucose tolerance test. Group B strep status is negative. Gynecologic history: Unremarkable with no history of any infections to include STDs. Review of Systems Review of systems is confined to history of present illness. Past Medical History Past Medical History: No Reported History History of Any Multi-Drug Resistant Organisms: None Reported Past Surgical History: No Surgical Hx Reported Smoking Status: Former smoker, Vaper Medications and Allergies Home Medications Medication Instructions Recorded Confirmed Type Pcj-Itcv-Arlga Acid 1 cap PO DAILY 01/02/20 05/29/20 History [-U Capsule (formulary)] Allergies Allergy/AdvReac Type Severity Reaction Status Date / Time No Known Allergies Allergy Verified 05/29/20 16:21 Exam Intake and Output 06/19/20 06/20/20 06/20/20 22:59 06:59 14:59 Other: Weight 71.214 kg General, this is a well-developed, well-nourished white female in significant discomfort as she is on the verge of delivery. Her heart has a regular rhythm and rate without murmur. Her lungs clear to auscultation bilaterally in all tesfaye. Her abdomen is gravid, nondistended, has normal active bowel sounds, is soft, nontender, and without any palpable masses aside from uterine fundus. Her extremities without any cyanosis, clubbing, or significant edema and are nontender to palpation bilaterally. Digital cervical examination on presentation demonstrated her cervix to be 9 cm dilated, 100% effaced, the vertex in presentation at 0 station. Spontaneous rupture of membranes is apparent with clear fluid. Assessment and Plan (1) Active labor at term Current Visit: Yes Status: Acute Code(s): FDZ9261 - SNOMED Code(s): 08599716 Plan: The patient is admitted for active management of labor. She will continue to have close maternal and surveillance and expectant management will be practiced. Anticipate vaginal delivery shortly.
--- NOTE | 2020-06-20 11:21 | P.PROBDLV ---
Vaginal Delivery Note - . Vaginal Delivery Note: The patient is a 24-year-old 2 para 0010 admitted at 37-5/7 weeks by good dating parameters. She is admitted in active labor with all signs reassuring. She presented to labor and delivery at 9 cm of dilation with spontaneous rupture of membranes. Her was uncomplicated and group B strep status was negative. She progressed very quickly to complete and then pushed over the course of approximately 10-15 minutes to a normal spontaneous vaginal delivery of a viable 6 lbs. 15 oz. baby boy with Apgars of 9 at 1 minute and 9 at 5 minutes delivered in the direct occiput anterior position. There was a loose nuchal cord 1 which was reduced following delivery of the infant. The placenta was delivered spontaneously, intact, and grossly normal although it did appear to have a bilobed in nature with the cord inserted between and at the margin of the junction of the 2 lobes. The cord was otherwise grossly normal and 3 vessels in nature. There were no lacerations of the perineum, vagina, or cervix. I spent a blood loss for the entire case was approximately 200 mL. There were no complications. All sponge, instrument, needle counts were correct. Both mother and infant are resting comfortably in recovery.
[2020-06-20] MEDS: IBUPROFEN 600 MG TAB PO SCH ×2 (11:44→19:33)
[2020-06-20 11:46] LABS: Basophils % (A) 0 %; Eosinophils % (A) 0 %; HCT 31.4 % (34.0-46.0); HGB 10.7 gm/dL (11.4-16.0); Lymphocytes % (A) 8 %; MCH 28.8 pg (25.0-35.0); MCV 84.7 fL (80.0-100.0); Mean Platelet Volume 8.6; Monocytes # (A) 0.4 k/uL (0-1.0); Monocytes % (A) 3 %; Neutrophils # (A) 11.5 k/uL (1.3-7.7); Neutrophils % (A) 89 %; Platelet Count 140 k/uL (150-450); RDW 13.1 % (11.5-15.5)
[2020-06-20] MEDS: HYDROcodone/APAP 5-325MG 1 EACH TAB PO PRN ×2 (15:11→22:39)
[2020-06-20] MEDS: SENNOSIDES-DOCUSATE SODIUM 1 EACH TAB PO SCH (19:33)
[2020-06-21] MEDS: IBUPROFEN 600 MG TAB PO SCH ×3 (01:47→14:50)
[2020-06-21 06:45] LABS: Basophils % (A) 0 %; Eosinophils # (A) 0.1 k/uL (0-0.7); Eosinophils % (A) 1 %; HCT 25.8 % (34.0-46.0); Lymphocytes # (A) 1.9 k/uL (1.0-4.8); Lymphocytes % (A) 19 %; MCH 29.4 pg (25.0-35.0); MCHC 34.8 g/dL (31.0-37.0); MCV 84.4 fL (80.0-100.0); Monocytes # (A) 0.5 k/uL (0-1.0); Monocytes % (A) 5 %; Neutrophils # (A) 7.4 k/uL (1.3-7.7); Neutrophils % (A) 74 %; Platelet Count 139 k/uL (150-450); RBC 3.05 m/uL (3.80-5.40); RDW 13.4 % (11.5-15.5); WBC 9.9 k/uL (3.8-10.6)
[2020-06-21] MEDS: SENNOSIDES-DOCUSATE SODIUM 1 EACH TAB PO SCH (08:49)
[2020-06-21] MEDS: HYDROcodone/APAP 5-325MG 1 EACH TAB PO PRN ×2 (08:49→18:26)
[2020-06-21 09:27] VITALS: RESP 18
--- NOTE | 2020-06-21 10:09 | P.DS ---
Providers Date of admission: 06/20/20 10:47 Expected date of discharge: 06/21/20 Attending physician: Yesenia Colin Primary care physician: Stated None - Discharge Diagnosis(es) (1) Active labor at term Current Visit: Yes Status: Acute (2) Normal spontaneous vaginal delivery Current Visit: Yes Status: Acute Hospital Course: The patient is a 24-year-old 2 para 0010 admitted at 37-5/7 weeks by good dating parameters. She presents in active labor at 9 cm of dilation with spontaneous rupture of membranes with clear fluid. heart rate tracing is category 1. Her was otherwise uncomplicated and group B strep status was negative. She progressed quickly to complete and pushed over the course of approximately 15 minutes to a normal spontaneous vaginal delivery of a viable 6 lbs. 15 oz. baby boy with Apgars of 9 at 1 minute 9 at 5 minutes. Her course was unremarkable with vital signs remaining stable and her temperature was afebrile throughout. She did complain of some moderate symphyseal joint pain for which I recommended nonsteroidal anti-inflammatories and possible compression with a maternity support belt. She was deemed stable for discharge on day #1 was discharged home to follow-up in the office in 6 weeks' time routinely. Discharge instructions included calling for any significantly increased bleeding or foul-smelling lochia, significantly increased fever or abdominal pain, perineal complaints, breast complaints, or a nything else that concerned her. She understood all of her instructions and agrees follow up as noted above. Discharge medications included [id number] analgesic pain medications as well as continued vitamins as she has opted to breast-feed. Maternal blood type is O+ and rubella status is immune. Procedures: #1. Normal spontaneous vaginal delivery Patient Condition at Discharge: Stable Plan - Discharge Summary New Discharge Prescriptions: No Action Fbj-Lvhg-Dkopd Acid [-U Capsule (formulary)] 1 cap PO DAILY Discharge Medication List Kxb-Uwal-Cgvqa Acid [-U Capsule (formulary)] 1 cap PO DAILY 01/02/20 [History] Follow up Appointment(s)/Referral(s): Yesenia Colin MD [STAFF PHYSICIAN] - 6 Weeks Discharge Disposition: HOME SELF-CARE
[2020-06-21 15:16] VITALS: BP 102/62; PULSE 83; TEMP 98.3
== END 2020-06-21 18:30 | disposition home or self-care (01) | DRG 807 ==
LOC: FBPOP 10:16 → 4FBP 10:47
PROVIDERS: ADMIT Obstetrics & Gynecology; ATTEND Obstetrics & Gynecology
PROC: 10E0XZZ Delivery of Products of Conception, External Approach (ICD-10-PCS; principal; 2020-06-20)
DX: O69.81X0 Labor and delivery complicated by cord around neck, without compression, not applicable or unspecified (principal); Z37.0 Single live birth; Z3A.37 37 weeks gestation of pregnancy; Z79.899 Other long term (current) drug therapy; Z87.891 Personal history of nicotine dependence
CPT/HCPCS: 85025; 86850; 86900; 86901